=== PATIENT | female | born 1980 ===

== ENCOUNTER 2016-11-27 01:13 | Observation (INO) ==
[2016-11-27] MEDS ORDERED: Naloxone 0.4 MG/ML INJ IVP PRN (03:13)
--- NOTE | 2016-11-27 03:13 | Internal Med History&Physical ---
Date of Encounter: 11/27/16 Time of Encounter: 03:13 Assessment and Plan (1) Abnormal LFTs Current visit: Yes Status: Acute Suspect choledocholithiasis versus sphincter of oddi dysfunction. Will check for hepatitis screen, MRCP. Consult airway controller for further advice (2) RUQ abdominal pain Current visit: Yes Status: Acute Suspect choledocholithiasis versus sphincter of oddi dysfunction. Pt meets Barclay IV criteria (pending MRCP). Will obtain MRCP. Consult airway controller for further advice (3) S/P cholecystectomy Current visit: Yes Status: Chronic Internal Medicine - H&P: HPI Chief complaint: RUQ abdominal pain Admitted From: Hospital to Hospital Transfer Plans for Post Hospital Care: Home History of present illness: Transfer from [facility]. Ms. Knapp is a 36 year old female with past medical history significant for cholelithiasis s/p cholecystectomy 2 years ago. She reports intermittent history of right upper quadrant pain, about once or twice a month, lasting for about an hour unrelated to meal or activity or position. But in the last week, pt had 3 episodes of RUQ abdominal pain. Yesterday, she had severe right upper quadrant pain, a few hours after the meal and lasted for about 4 hours and improved with morphine given in the ER. Pain was like squeezing, 10/10, non radiating. She had an episode of vomiting with the pain. He denies fever, chills, shortness of breath, chest pain, dysuria, hematuria, change in bowel habits. She denies dark urine/pale stools. She denies history of hepatitis, alcohol use, IV drug use, recent travel outside the [facility] (she did have a vacation in [place] recently). She was evaluated in [facility]. Lab work reported total bilirubin of 1.6, AST 565, AST 530, alkaline phosphatase is 150, amylase 69, lipase 169, troponin less than 0.056, sodium 135, potassium 3.7, BUN 9, creatinine 0.77, lactic acid 1.3, CRP 0.3, WBC 10.9, hemoglobin 13.5, HCT 40.6, platelets 268. CT scan of the abdomen and pelvis was done but the result is not available with the documents sent with the pt. Pt is admitted for further w/u and management. Past Med Surg Social Fam HX - Past Medical History Medical history: no medical history Psychiatric history: anxiety - Past Surgical History Surgical History: , cholecystectomy - Social History Smoking Status: Never smoker Alcohol use: rarely Drug use: none - Additional Family History Additional family history: Her sister had gallstone disease Internal Medicine - H&P: Meds Allergies No Known Allergies Allergy (Verified 11/27/16 01:38) All Systems PM: A 10-system review of systems was performed and is negative for pertinent findings except as documented above in the HPI. - Constitutional Vitals: Temp Pulse Resp BP Pulse Ox 98.0 F 68 15 110/73 99 11/27/16 01:33 11/27/16 01:33 11/27/16 01:33 11/27/16 01:33 11/27/16 01:33 Exam: General: Not in acute distress at the time of my evaluation HEENT: Oral mucosa is moist. No conjunctival palor or scleral icterus Neck: No obvious neck swellings Lungs: Clear to auscultation Cardiac: Regular rate and rhythm. No significant murmurs Abdomen: Soft, non tender. Bowel sounds present Genitourinary: No berman catheter Neurological: Alert and oriented. No gross localizing deficits Psych: Not aggressive or agitated Extremities: no significant leg edema Skin: No generalized rash. There is evidence of insect bite cardoza on the legs Internal Med - H&P Results - Labs Labs: Lab work reported total bilirubin of 1.6, AST 565, AST 530, alkaline phosphatase is 150, amylase 69, lipase 169, troponin less than 0.056, sodium 135 , potassium 3.7, BUN 9, creatinine 0.77, lactic acid 1.3, CRP 0.3, WBC 10.9, hemoglobin 13.5, HCT 40.6, platelets 268.
[2016-11-27] MEDS: 0.9 % Sodium Chloride 1,000 ML IVC SCH ×2 (03:39→23:32)
[2016-11-27 05:26] LABS: Basophils % 0.6 %; Eosinophils # 0.1 K/mcL (0.0-0.6); Hematocrit 33.8 % (35.3-44.9); Hemoglobin 11.4 g/dL (11.5-15.4); Immature Granulocytes % 0.3 % (0-4); Lymphocytes # 1.7 K/mcL (0.6-4.6); Lymphocytes % 23.4 %; Mean Corpuscular HGB Conc 33.7 g/dL (31.6-35.5); Mean Corpuscular Hemoglobin 30.5 pg (28.0-33.3); Mean Corpuscular Volume 90.4 fL (83.0-100.0); Mean Platelet Volume 10.5 fL (9.4-12.4); Monocytes # 0.5 K/mcL (0.0-1.3); Monocytes % 6.6 %; Neutrophils # 4.8 K/mcL (1.6-8.9); Platelet Count 223 K/mcL (140-400); Red Blood Count 3.74 M/mcL (3.82-4.97); Red Cell Distribution Width 11.9 % (11.5-14.5); Segmented Neutrophils % 67.1 %
[2016-11-27 06:03] LABS: Hepatitis B Surface Antigen Nonreactive (Nonreactive)
--- NOTE | 2016-11-27 10:09 | Event Note ---
Date of Encounter: 11/27/16 Time of Encounter: 10:06 Seen and evaluated at bedside Being managed for RUQ pain with suspected choledocholithiasis Not in distress, physical exam is unremarkable, abdomen is benign and not acute Pending GI eval, MRCP and repaet LFTs this morning continue current management
[2016-11-27 10:16] LABS: Alanine Aminotransferase 514 Units/L (0-55); Albumin 3.5 g/dL (3.5-5.0); Albumin/Globulin Ratio 1.1 (1.1-2.2); Alkaline Phosphatase 132 Units/L (38-126); Aspartate Amino Transferase 284 Units/L (5-34); BUN/Creatinine Ratio 10 (6-26); Bilirubin,Total 1.1 mg/dL (0.2-1.2); Blood Urea Nitrogen 7 mg/dL (7-20); Calcium 8.8 mg/dL (8.6-10.8); Carbon Dioxide 27 mEq/L (19-29); Chloride 105 mEq/L (98-109); Globulin 3.1 g/dL (2.4-3.5); Glucose 81 mg/dL (70-99); Osmolality,Calculated 281 (280-300); Potassium 3.8 mEq/L (3.5-4.5); Sodium 137 mEq/L (136-145); Total Protein 6.6 g/dL (6.0-8.3); eGFR For African Americans > 60 (> 60); eGFR For Non-African Americans > 60 (> 60)
--- NOTE | 2016-11-27 10:58 | Anesthesia Evaluation PreOp ---
Date of Encounter: 11/27/16 Time of Encounter: 10:56 - Past History Planned Operation: ERCP Cardiac History: Denies any Significant Hx Pulmonary History: Denies Any Significant HX HEAD TEACHER History: Denies Any Significant HX Other Medical History: Denies Any Significant HX Anesthesia History: No Prior Anesthetic Complications, Past Anesthesia Test: Negative (11/27/2016) Alcohol Use: rarely Drug use: none Medications and Allergies Levonorgestrel [Mirena] 52 mg IY AD 11/27/16 [History] Allergies No Known Allergies Allergy (Verified 11/27/16 01:38) - Meds/Allergy Pre-op Review Medications Reviewed: Yes Allergies Reviewed: Yes Beta Blockers on Current Med List: No Anesthesia Results - Labs 11/27/16 04:21 11/27/16 09:38 Anesthesia Exam Vital Signs/O2 Sat, Most Current Temp Pulse Resp BP Pulse Ox 98.2 F 64 14 97/61 100 11/27/16 08:22 11/27/16 08:22 11/27/16 08:22 11/27/16 08:22 11/27/16 08:22 Height: 5'2''/1.57 m Weight: 140 lbs/63.5 kg NPO (# of Hours): 8 Pain Scale: 0 Pain Scale Used: Numeric (1 - 10) - HEENT Pupil (Motor): EOMI Mallampati: II Teeth: Normal Oral Opening: Greater than 3 - HEAD TEACHER LOC: Oriented HEAD TEACHER Motor: Normal RUE, Normal LUE, Normal RLE, Normal LLE, Normal Face HEAD TEACHER Sensory: Normal: RUE, LUE, RLE, LLE, Face - Cardiac Rhythm: Regular Murmur: None - Pulmonary Breath Sounds: bilateral Clear Respiratory Effort: Symmetrical Anesthesia Assess/Plan ASA Score: 1 Modified Katia Scale for Level of Consciousness: Cooperative, oriented, and tranquil Anesthetic Plan: General Monitoring Plan: Standard Monitors Recovery Plan: PACU
--- NOTE | 2016-11-27 12:14 | Gastroenterology Consult Note ---
<Travon Abrams - Last Filed: 11/27/16 12:36> Date of Encounter: 11/27/16 Time of Encounter: 11:20 - Assessment and plan (1) Abnormal LFTs Current Visit: Yes Status: Acute Assessment and plan: Likely secondary to choledocholithiasis. AST 284 and ALT 514. No need for MRCP at this time. Plan for ERCP this afternoon. Keep patient NPO. (2) RUQ abdominal pain Current Visit: Yes Status: Acute Assessment and plan: Likely secondary to choledocholithiasis. Plan for ERCP today. (3) S/P cholecystectomy Current Visit: Yes Status: Chronic - Time Spent With Patient Total time spent is greater than 50% in coordination of care (as documented) at patient's floor/unit and/or counseling patient: GI History of Present Illness - Data of Consult Patient: new to practice Consult date: 11/27/16 Requesting Physician: Alejandro De Leon - Consult Narrative Reason for consult: Abnormal LFTs History of present illness: Ms. Knapp is a 36 year old female with PMHx of cholelithiasis s/p cholecystectomy 2 years ago. She reports intermittent RUQ pain (once or twice per month), which lasts for about an hour, that is unrelated to meal, activity, or position. She has had 3 episodes of RUQ pain in the past week, and yesterday she had severe right upper quadrant pain, a few hours after the meal and lasted for about 4 hours and improved with morphine given in the ER. She had an episode of vomiting with the pain. She denies fever, chills, SOB, chest pain, constipation, diarrhea, melena, or hematochezia. She denies history of hepatitis , alcohol use, IV drug use, recent travel outside the [facility]. She was evaluated in [facility]. Lab work reported total bilirubin of 1.6, AST 565, ALT 530, alkaline phosphatase is 150, amylase 69, lipase 169, troponin less than 0.056, sodium 135, potassium 3.7, BUN 9, creatinine 0.77, lactic acid 1.3, CRP 0.3, WBC 10.9, hemoglobin 13.5, HCT 40.6, platelets 268. CT scan of the abdomen and pelvis was done but the result is not available with the documents sent with the pt. Procedure: None NSAIDs: None Anticoagulation: None Past Med Surg Social Fam HX - Past Medical History Medical history: no medical history Psychiatric history: anxiety - Past Surgical History Surgical History: , cholecystectomy - Social History Smoking Status: Never smoker Alcohol use: rarely Drug use: none - Gastrointestinal Gastrointestinal: Present: as per HPI - Constitutional Constitutional: as per HPI - EENT Eyes: as per HPI Ears: Present: as per HPI Nose, mouth and throat: Present: as per HPI - Cardiovascular Cardiovascular ROS: Present: as per HPI - Respiratory Respiratory IM: Present: as per HPI - Genitourinary Genitourinary: Absent: change in color, Urinary frequency - Neurological ROS Neurological GI: Present: as per HPI - Hematologic/Lymphatic Hematologic/Lymphatic pediatric: Present: as per HPI - Musculoskeletal Musculoskeletal ROS GI: Present: as per HPI - Integumentary Integumentary GI: Present: as per HPI - Psychiatric ROS Psychiatric GI: Present: as per HPI - Endocrine Endocrine IM: Present: as per HPI - Constitutional Vitals: Temp Pulse Resp BP Pulse Ox 98.2 F 64 14 97/61 100 11/27/16 08:22 11/27/16 08:22 11/27/16 08:22 11/27/16 08:22 11/27/16 08:22 General appearance: Present: cooperative, A&O X 3, no acute distress, answers questions appropriately - Head Head exam: Present: atraumatic, normocephalic - Eye Eye exam: Present: normal appearance, sclera anicteric - ENT ENT exam: Present: mucous membranes dry - Neck Neck exam general surgery: Present: normal inspection, trachea midline - Respiratory Respiratory exam: Present: CTAB. Absent: decreased breath sounds, rales, rhonchi - Cardiovascular Cardiovascular exam: Present: RRR, +S1, +S2 - GI/Abdominal GI/Abdominal exam: Present: soft, tenderness, no peritoneal signs. Absent: distended, firm, guarding - Rectal Rectal exam: Present: deferred - Extremities Exam Extremities exam: Present: warm - Neurological Exam Neurological exam: Present: no focal deficits - Psychiatric Psychiatric exam: Present: normal affect, normal mood - Skin Skin exam: Present: dry, intact, normal color, warm Results - Labs CBC & Chem 7: 11/27/16 04:21 11/27/16 09:38 Labs: Last Result Calcium 8.8 mg/dL (8.6-10.8) 11/27/16 09:38 Entire Visit Hgb 11.4 g/dL (11.5-15.4) L 11/27/16 04:21 Hct 33.8 % (35.3-44.9) L 11/27/16 04:21 Total Bilirubin 1.1 mg/dL (0.2-1.2) 11/27/16 09:38 AST 284 Units/L (5-34) H 11/27/16 09:38 ALT 514 Units/L (0-55) H 11/27/16 09:38 Consult Discharge Plan - Plan Referrals: Real Renee MD [Partnered Physician] - 12/13/16 10:00 am <Eduar Guerra - Last Filed: 11/27/16 14:27> Date of Encounter: 11/27/16 Time of Encounter: 14:00 - Time Spent With Patient Total time spent is greater than 50% in coordination of care (as documented) at patient's floor/unit and/or counseling patient: GI History of Present Illness - Data of Consult Requesting Physician: Alejandro De Leon - Consult Narrative History of present illness: Ms. Knapp is a 36 year old female - Constitutional Vitals: Temp Pulse Resp BP Pulse Ox 97.9 F 105 18 112/66 97 11/27/16 14:09 11/27/16 14:09 11/27/16 14:09 11/27/16 14:09 11/27/16 14:09 Results - Labs CBC & Chem 7: 11/27/16 04:21 11/27/16 09:38 Labs: Last Result Calcium 8.8 mg/dL (8.6-10.8) 11/27/16 09:38 Entire Visit Hgb 11.4 g/dL (11.5-15.4) L 11/27/16 04:21 Hct 33.8 % (35.3-44.9) L 11/27/16 04:21 Total Bilirubin 1.1 mg/dL (0.2-1.2) 11/27/16 09:38 AST 284 Units/L (5-34) H 11/27/16 09:38 ALT 514 Units/L (0-55) H 11/27/16 09:38 - Attending Attestation I examined this patient and my medical decision-making was reviewed with the HONING MACHINE OPERATOR SEMIAUTOMATIC/PA/Advanced Practice Nurse/Resident Physician. I agree with the documented findings, disposition and treatment plan as described except to the extent set forth below. patient with abnormal LFTS, GALLBLADDER OUT, Does has recurrent RUQ pain suspicious for SOD versus CBD stone Rec: ERCP with sphincterotomy and sweep of CBD
[2016-11-27 13:00] LABS: Hepatitis A Antibody IgM Nonreactive (Nonreactive); Hepatitis B Core IgM Nonreactive (Nonreactive); Hepatitis C Virus Antibody Nonreactive (Nonreactive)
[2016-11-27] MEDS ORDERED: *HR* FentaNYL (PF) 100 MCG/2 ML VIAL ONE (14:14)
[2016-11-27] MEDS ORDERED: *HR* Promethazine 25 MG/ML VIAL IVP PRN (14:48)
[2016-11-27] MEDS ORDERED: Ondansetron 4 MG/2 ML VIAL IVP ONE (14:48)
[2016-11-27] MEDS ORDERED: Indomethacin 50 MG SUPP.RECT RC ONE (14:53)
[2016-11-27] MEDS: *HR* HYDROmorphone (PF) 1 MG/ML SYRINGE IVP PRN ×2 (15:28→15:34)
--- NOTE | 2016-11-27 15:47 | Anesthesia Evaluation Post Op ---
Date of Encounter: 11/27/16 Time of Encounter: 15:46 - Vital Signs Vital Signs: Vital Signs/O2 Sat/Glucose, Most Current Temp Pulse Resp BP Pulse Ox 11/27/16 15:37 97.4 F L 81 16 114/80 100 11/27/16 15:27 91 16 119/80 100 11/27/16 15:17 94 16 118/79 100 11/27/16 15:07 97.9 F 107 16 112/74 100 11/27/16 14:09 97.9 F 105 18 112/66 97 11/27/16 12:37 98.2 F 67 16 106/69 100 Vital Signs/O2 Sat, Most Current Temp Pulse Resp BP Pulse Ox 97.4 F L 81 16 114/80 100 11/27/16 15:37 11/27/16 15:37 11/27/16 15:37 11/27/16 15:37 11/27/16 15:37 - Lungs Lungs: Clear Ascult./Percussion - Airway Airway: Non-obstructed - Cardiovascular Regular Rate - Mental Status Mental Status: Alert & Oriented, Answers Appropriately - Pain Pain Scale: 5 Pain Scale used: Numeric (1 - 10) - Nausea Vomiting Nausea Vomiting: Not Present - Hydration Hydration: NPO, Has not voided - Discharge PostOp Status: Transfer Patient to floor
[2016-11-27] MEDS ORDERED: *HR* HYDROmorphone (PF) 1 MG/ML SYRINGE IVP PRN (16:38)
[2016-11-27] MEDS ORDERED: Acetaminophen 325 MG TABLET PO PRN (16:38)
[2016-11-27] MEDS ORDERED: *HR* OxyCODONE/APAP 5/325 TABLET PO PRN (16:39)
[2016-11-28 05:08] LABS: Basophils % 0.1 %; Hemoglobin 11.6 g/dL (11.5-15.4); Immature Granulocytes % 0.6 % (0-4); Lymphocytes # 0.6 K/mcL (0.6-4.6); Lymphocytes % 7.2 %; Mean Corpuscular HGB Conc 34.1 g/dL (31.6-35.5); Mean Corpuscular Hemoglobin 31.3 pg (28.0-33.3); Mean Corpuscular Volume 91.6 fL (83.0-100.0); Mean Platelet Volume 10.5 fL (9.4-12.4); Monocytes # 0.3 K/mcL (0.0-1.3); Monocytes % 3.9 %; Neutrophils # 7.3 K/mcL (1.6-8.9); Platelet Count 213 K/mcL (140-400); Red Blood Count 3.71 M/mcL (3.82-4.97); Red Cell Distribution Width 11.8 % (11.5-14.5); Segmented Neutrophils % 88.2 %
[2016-11-28 05:31] LABS: Alanine Aminotransferase 404 Units/L (0-55); Albumin 3.3 g/dL (3.5-5.0); Albumin/Globulin Ratio 1.1 (1.1-2.2); Alkaline Phosphatase 183 Units/L (38-126); Aspartate Amino Transferase 139 Units/L (5-34); BUN/Creatinine Ratio 12 (6-26); Blood Urea Nitrogen 8 mg/dL (7-20); Calcium 8.4 mg/dL (8.6-10.8); Carbon Dioxide 23 mEq/L (19-29); Chloride 105 mEq/L (98-109); Glucose 98 mg/dL (70-99); Osmolality,Calculated 278 (280-300); Potassium 4.1 mEq/L (3.5-4.5); Sodium 135 mEq/L (136-145); Total Protein 6.3 g/dL (6.0-8.3); eGFR For African Americans > 60 (> 60); eGFR For Non-African Americans > 60 (> 60)
[2016-11-28 05:35] LABS: Bilirubin,Total 1.8 mg/dL (0.2-1.2)
[2016-11-28] MEDS: 0.9 % Sodium Chloride 1,000 ML IVC SCH (08:52)
[2016-11-28 10:47] VITALS: BP 97/64
--- NOTE | 2016-11-28 13:04 | Discharge Summary ---
Date of Encounter: 11/28/16 Time of Encounter: 13:04 - Discharge Diagnosis (1) Choledocholithiasis Priority: Primary Status: Acute (2) Abnormal LFTs Priority: Primary Status: Acute (3) RUQ abdominal pain Priority: Primary Status: Acute - Discharge Medications Home Medications: Levonorgestrel [Mirena] 52 mg IY AD 11/27/16 [History] Allergies/Adverse Reactions: Allergies No Known Allergies Allergy (Verified 11/27/16 01:38) Date of admission: 11/27/16 01:17 Primary care physician: PCP NO Consults: 11/27/16 03:15 Consult to Gastroenterology [CONS] Routine Consulting Provider: Gastroenterology Archana Reason for Consult: abnormal LFTs Call Completed: No Discharging clinician: Oren Orourke Anticipated date of discharge: 11/28/16 - Patient Status Disposition: Home, Self-Care Condition: Good Functional capacity at discharge: independent ambulation Overall status at discharge: patient is back to baseline - Discharge Instructions Follow Up With: Real Renee MD [Partnered Physician] - 12/13/16 10:00 am (Please bring with you the new patient packet you will receive in the mail. You will also need to bring your photo ID, insurance card and a list of all meds you are taking. If you have to cancel, please give a 24 hour notice. Thank you) - Diet and Activity Activity: resume usual activities as tolerated Diet: regular diet Interval History: See below Hospital course: Ms. Knapp is a 36 year old female with PMH of cholelithiasis s/p cholecystectomy 2 years ago, who was referred to [facility] from [facility] for abdominal pain and transaminitis Lab work reported total bilirubin of 1.6, AST 565, ALT 530, alkaline phosphatase is 150, amylase 69, lipase 169, troponin less than 0.056, sodium 135 , potassium 3.7, BUN 9, creatinine 0.77, lactic acid 1.3, CRP 0.3, WBC 10.9, hemoglobin 13.5, HCT 40.6, platelets 268. Abdomen and pelvis CT was done at referral center and imaging /report was not available Patient was admitted to observation and managed with IVF hydration, pain control and antiemetics Gastroenterology was consulted and proceeded with ERCP, with evidence of sludge and debris , filling defect on cholangiogram, she had a biliary sphincterotomy done She is seen at bedside today, she denies any pain and reports she has remarkable improvement n her symptoms She declined any opiates for pain Her LFT is downtrending She is tolerating orally and ambulatory She is clinically stable to be discharged home. I discussed with Dr. Guerra, the patient does not need to follow up with them in the office, and she does not need any medications to go home with. Patient is educated to follow up with her primary care physician, I will repeat LFTs and ensure continuous resolution of transaminitis. Her hepatitis panel was negative. The plan of care is discussed patient verbalizes understanding. - Time Spent with Patient Total time spent providing and/or coordinating discharge services: Less than 30 minutes - Constitutional Vitals: Temp Pulse Resp BP Pulse Ox 98.3 F 96 16 97/64 99 11/28/16 10:43 11/28/16 10:43 11/28/16 10:43 11/28/16 10:43 11/28/16 10:43 General appearance: Present: A&O X 3, pleasant, no acute distress - Head Head exam: Present: atraumatic, normocephalic - Eye Eye exam: Present: PERRL, conjuntiva pink, sclera anicteric Pupils: Present: PERRL - Neck Neck exam general surgery: Present: supple, trachea midline. Absent: lymphadenopathy - Respiratory Respiratory exam: Present: CTAB. Absent: accessory muscle use, rales, rhonchi, wheezes - Cardiovascular Cardiovascular exam: Present: RRR, +S1, +S2. Absent: diastolic murmur, gallop, rubs, systolic murmur - GI/Abdominal GI/Abdominal exam: Present: normal bowel sounds, soft, no peritoneal signs. Absent: distended, tenderness - Extremities Exam Extremities exam: Present: warm, radial pulses palpable and symetrical. Absent : calf tenderness, cyanotic, pedal edema - Neurological Exam Neurological exam: Present: alert, CN II-XII intact, oriented X3, no focal deficits. Absent: pronater drift, facial droop, speech deficit - Skin Skin exam: Present: dry, intact
[2016-11-28] MEDS ORDERED: *HR* Succinylcholine 200 MG/10 ML VIAL IVP ONE (14:20)
[2016-11-28] MEDS ORDERED: *HR* Rocuronium Bromide 50 MG/5 ML VIAL IVC ONE (14:20)
[2016-11-28] MEDS ORDERED: Lidocaine -MPF 2% 5 ML VIAL INFILT ONE (14:20)
[2016-11-28] MEDS ORDERED: *HR* Propofol 200 MG/20 ML VIAL IVP ONE (14:20)
[2016-11-28] MEDS ORDERED: Ondansetron 4 MG/2 ML VIAL IVP ONE (14:20)
[2016-11-28] MEDS ORDERED: Lidocaine -MPF 4% 5 ML AMPUL TP ONE (14:20)
== END 2016-11-28 14:21 | disposition home or self-care (01) ==
LOC: 3ANU
PROVIDERS: ADMIT Internal Medicine; ATTEND Internal Medicine